=== PATIENT | male | born 1940 | race Caucasian/White ===

== ENCOUNTER 2021-05-29 11:23 | Inpatient (IN) | payer OTHER ==
[~2021-05-29] VITALS: Ht 177.8 cm; Wt 83.9 kg
[~2021-05-29 11:23] MED LIST: ALBUTEROL2.5 MG/0.1 INH; ALBUTEROL2.5 MG/31 INH; AVELOX 400 MG400 MG PO; AVELOX ABC PAC400 MG PO; AZITHROMYCIN 2250 MG PO; BIAXIN 500 MG500 M1 PO; CARAFATE 1 GM TA1 G1 PO; CHANTIX1 MG PO; CONCERTA18 M1 PO; DUONEB 2.5-0.5 M3 ML INH; LASIX 20 MG TAB20 MG PO; LEVAQUIN 500 M500 M1 PO; LEVAQUIN 500 M500 MG PO; LIPITOR20 MG; LIPITOR20 MG PO; LIPITOR40 MG PO; LISINOPRIL20 MG PO; NICOTINE TRANSD21 M1 TOP; PHENERGAN 25 MG25 M1 PO; PREDNISONE 10 M10 M1; PREDNISONE 10 M10 MG PO; PREDNISONE50 MG PO; PRILOSEC 20 MG20 MG PO; PRILOSEC40 MG PO; PROAIR HFA8.5 GM IH; PROAIR HFA8.5 GM INH; PROTONIX40 M2 PO; SINGULAIR 10 MG10 M1 PO; SPACERADULT IH; SPIRIVA INH; TAMSULOSIN HCL0.4 MG PO; VENTOLIN17 GM INH; ZPAK PO; bp med
[2021-05-29 11:27] VITALS: BP 153/90
[2021-05-29] MEDS ORDERED: OMEPRAZOLE20 M2 PO (11:32)
[2021-05-29 11:46] LABS: HEMATOCRIT 37.4 % (42.0-52.0); HEMOGLOBIN 12.4 gm/dL (14.0-18.0); MCH 28.9 pg (26.0-34.0); MCHC 33.3 g/dL (28.0-37.0); MCV 86.9 fL (80.0-100.0); MPV 8.7 fl. (7.2-11.1); NUCLEATED RBCS 0 /100WBC; PLATELET COUNT* 266 thou/uL (150-400); RDW-CV 16.6 % (10.5-14.5)
[2021-05-29 11:56] LABS: CALCIUM 8.5 mg/dL (8.5-10.1); CREATININE 1.7 mg/dL (0.6-1.3); POTASSIUM 3.2 mmol/L (3.5-5.1)
[2021-05-29 12:06] LABS: ALBUMIN 2.2 g/dL (3.4-5.0); MAGNESIUM 1.5 mg/dL (1.8-2.4); TOTAL BILIRUBIN 0.7 mg/dL (<0.1-1.0); TOTAL PROTEIN 6.4 g/dL (6.4-8.2)
[2021-05-29 12:34] LABS: ABSOLUTE EOSINOPHILS 0.2 thou/uL (0.0-0.7); ABSOLUTE LYMPHOCYTES 1.6 thou/uL (0.8-5.3); ABSOLUTE MONOCYTES 0.3 thou/uL (0.0-1.2); ABSOLUTE NEUTROPHILS 13.9 thou/uL (1.6-8.1); ATYPICAL LYMPHS 1 %; PLATELET ESTIMATE ADEQUATE
[2021-05-29 14:35] VITALS: BP 121/63
[2021-05-29 14:45] VITALS: BP 123/84
[2021-05-29 17:43] LABS: CALCIUM 8.8 mg/dL (8.5-10.1); CREATININE 1.8 mg/dL (0.6-1.3); POTASSIUM 3.4 mmol/L (3.5-5.1)
[2021-05-29 17:46] LABS: MAGNESIUM 1.7 mg/dL (1.8-2.4); PHOSPHORUS* 3.1 mg/dL (2.5-4.9)
--- NOTE | 2021-05-29 18:11 | NUR ---
RECEIVED REPORT FROM MARISA VACA. PT ARRIVED ON UNIT AROUND 1445. ASSUMED CARE. VS CHARTED. ADMIT IN CHART. MEDS GIVEN PER MAR. HOURLY ROUNDING PERFORMED. PCR COVID PENDING. ISOLATION INTACT. PT ORIENTED TO ROOM. UA SPECIMEN COLLECTED. SPUTUM STILL NEEDED. 2 AND HALF L NC. CALL LIGHT WITH IN REACH. WILL CONTINUE TO MONITOR.
[2021-05-29 23:59] VITALS: BP 132/81
[2021-05-30 04:08] VITALS: BP 141/76
[2021-05-30 04:57] LABS: ABSOLUTE LYMPHOCYTES 0.5 thou/uL (0.8-5.3); ABSOLUTE MONOCYTES 0.3 thou/uL (0.0-1.2); ABSOLUTE NEUTROPHILS 14.6 thou/uL (1.6-8.1); BASOPHILS 0.2 %; EOSINOPHILS 0.1 %; HEMOGLOBIN 12.1 gm/dL (14.0-18.0); LYMPHOCYTES 3.1 %; MCH 29.3 pg (26.0-34.0); MCHC 33.5 g/dL (28.0-37.0); MCV 87.5 fL (80.0-100.0); MONOCYTES 1.9 %; MPV 8.7 fl. (7.2-11.1); NUCLEATED RBCS 0 /100WBC; PLATELET COUNT* 272 thou/uL (150-400); POLYS 94.7 %; RBC 4.11 mil/uL (4.50-6.00); RDW-CV 16.4 % (10.5-14.5); WBC 15.4 thou/uL (4.0-11.0)
[2021-05-30 05:14] LABS: ANION GAP 9 mmol/L (7-16); BUN 42 mg/dL (7-18); CHLORIDE 107 mmol/L (98-107); CO2 27 mmol/L (21-32); CREATININE 1.6 mg/dL (0.6-1.3); GLUCOSE 163 mg/dL (70-99); POTASSIUM 3.4 mmol/L (3.5-5.1); SODIUM 143 mmol/L (136-145); TROPONIN-I LEVEL <0.06 ng/mL (<0.06)
[2021-05-30 08:00] VITALS: BP 132/87
--- NOTE | 2021-05-30 11:20 | NUR ---
Nutrition: Pt admitted with respiratory failure. In COVID isolation. H/o COPD. Wt: 185#. Assessed for Jason score 11. Labs: BG 163, alb 2.2, prealb 9. No meal intake records. RD ordered Beneprotein d/t severely depleted protein stores. Consider mild risk at this time. Please record meal intake. Encourage good protein intake. RD will follow up on po intake, labs 06/03/21.
--- NOTE | 2021-05-30 11:39 | EKG ---
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 : 1940 Requested By: Jan Marrero Order Number: [id number] MD: Winston Warner Measurements Intervals [place] Rate: 109 P: -64 MN: 136 QRS: -2 QRSD: 97 T: 46 QT: 339 QTc: 457 Interpretive Statements Atrial fibrillation ventricular premature complex Low voltage, extremity leads Compared to ECG 11/16/2013 11:05:53 Ventricular premature complex(es) now present Low QRS voltage now present Sinus rhythm no longer present Sinus arrhythmia no longer present Electronically Signed On 05-30-2021 11:39:02 CDT by Winston Warner [email or web address] <ELECTRONICALLY SIGNED> By: Winston Warner MD, [facility] 05/30/21 1139 1125 1125 Winston Warner MD, [facility] /EPI
[2021-05-30 13:33] LABS: BE 2.9 mmol/L (-2 to +3); PCO2 36.1 mmHg (35.0-45.0); PO2 60.8 mmHg (75.0-100.0); pH 7.479 (7.340-7.450)
[2021-05-30 13:45] VITALS: BP 129/79
--- NOTE | 2021-05-30 14:08 | NUR ---
CM spoke with via phone. Pt is PUI on enhanced precautions, await PCR. Pt is A&O. Independent. Normally wears 2.5L o2 at home, now requiring 4-5L. Goal is home at dc, no dc plans at this time.
--- NOTE | 2021-05-30 14:21 | 2DMMODE ---
[place] [address] 2 D/M-MODE ECHOCARDIOGRAM Name: JAKUB LARA EDJOSE GRANT Room: [address] IN [facility]#: [id number] Admission: 05/29/21 Attend Phys: Alfonzo Martin, Discharge: Date of : 40 Date of Service: 05/30/21 1421 Report #: [id number] THIS REPORT FOR: cc: Carlos Jeff Brad DO Liston, Michael J. MD [facility] ~ APPROVED REPORT Study performed: 05/30/2021 11:39:22 EXAM: Comprehensive 2D, Doppler, and color-flow Echocardiogram Patient Location: In-Patient Room #: [facility] [place] Status: routine BSA: 2.02 HR: 80 bpm BP: 132/87 mmHg Rhythm: NSR Other Information Study Quality: Good Indications Congestive Heart Failure 2D Dimensions IVSd: 11.10 (7-11mm) LVOT Diam: 23.20 (18-24mm) LVDd: 53.44 mm PWd: 10.61 (7-11mm) LVDs: 37.98 (25-40mm) Aortic Root: 34.69 mm Volumes Left Atrial Volume (Systole) LA ESV Index: 24.90 mL/m2 Aortic Valve AoV Peak James.: 1.41 m/s AO Peak Gr.: 7.97 mmHg LVOT Max P.97 mmHg AO Mean Gr.: 4.57 mmHg LVOT Mean P.75 mmHg LVOT Max V: 1.00 m/s AO V2 VTI: 24.30 cm LVOT Mean V: 0.60 m/s DENISE (VTI): 2.86 cm2 LVOT V1 VTI: 16.42 [place] [address] 2 D/M-MODE ECHOCARDIOGRAM Name: JAKUB LARA JR Room: [address] IN .R.#: [id number] Admission: 05/29/21 Attend Phys: Alfonzo Martin, Discharge: Date of : 40 Date of Service: 05/30/21 1421 Report #: [id number] Pulmonary Valve PV Peak James.: 1.00 m/s PV Peak Gr.: 4.02 mmHg Tricuspid Valve RAP Estimate: 10.00 mmHg TR Peak Gr.: 29.98 mmHg RVSP: 39.00 mmHg PA Pressure: 39.00 mmHg Left Ventricle The left ventricle is normal size. There is normal LV segmental wall motion. There is normal left ventricular wall thickness. Left ventricular systolic function is normal. LVEF is 60%. This study is not technically sufficient to allow evaluation of the LV diastolic function due to atrial fibrillation. Right Ventricle The right ventricle is normal size. The right ventricular systolic function is normal. Atria Left atrium is mildly dilated. Right atrium is mildly dilated. Aortic Valve Mild aortic valve sclerosis. No aortic regurgitation is present. There is no aortic valvular stenosis. Mitral Valve The mitral valve is normal in structure. Trace mitral regurgitation. No evidence of mitral valve stenosis. Tricuspid Valve The tricuspid valve is normal in structure. Trace tricuspid regurgitation. Mild pulmonary hypertension. Pulmonic Valve The pulmonary valve is normal in structure. There is no pulmonic valvular regurgitation. Great Vessels The aortic root is normal in size. IVC is dilated. Pericardium There is no pericardial effusion. <Conclusion> [place] [address] 2 D/M-MODE ECHOCARDIOGRAM Name: JAKUB LARANathen GRANT Room: [address] IN .R.#: [id number] Admission: 05/29/21 Attend Phys: Alfonzo Martin, Discharge: Date of : 40 Date of Service: 05/30/21 1421 Report #: [id number] The left ventricle is normal size. There is normal left ventricular wall thickness. Left ventricular systolic function is normal. LVEF is 60%. This study is not technically sufficient to allow evaluation of the LV diastolic function due to atrial fibrillation. Left atrium is mildly dilated. Right atrium is mildly dilated. Mild aortic valve sclerosis. Trace mitral regurgitation. Trace tricuspid regurgitation. Mild pulmonary hypertension. IVC is dilated. <ELECTRONICALLY SIGNED> By: Winston Warner MD, FACC 05/30/21 142 142 20 Winston Warner MD, FACC /INF
[2021-05-30 17:23] VITALS: BP 122/82
--- NOTE | 2021-05-30 18:36 | NUR ---
RECEIVED REPORT AROUND 0715. ASSUMED CARE. VS AND ASSESSMENT CHARTED. IV INTACT RIGHT FOREARM. ISOLATION INTACT. COVID PENDING. HEART MONITOR ATTACHED AT AFIB. CARDIOLOGY AND PULMONOLOGY CONSULTED TODAY. 3L NC. MEDS GIVEN PER JAN. HOURLY ROUNDING PERFORMED. CALL LIGHT WITH IN REACH. WILL CONTINUE TO MONITOR.
[2021-05-30 20:00] VITALS: BP 117/67
[2021-05-31] VITALS (7 sets, daily range): BP systolic 106–122; BP diastolic 63–81
--- NOTE | 2021-05-31 01:31 | NUR ---
PT ALERT ORIENTED. UP AD BRE IN ROOM. 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
[2021-05-31 05:47] LABS: ABSOLUTE LYMPHOCYTES 0.8 thou/uL (0.8-5.3); ABSOLUTE MONOCYTES 0.4 thou/uL (0.0-1.2); HEMATOCRIT 33.5 % (42.0-52.0); HEMOGLOBIN 11.3 gm/dL (14.0-18.0); LYMPHOCYTES 3.6 %; MCH 29.4 pg (26.0-34.0); MCHC 33.9 g/dL (28.0-37.0); MCV 86.7 fL (80.0-100.0); MONOCYTES 1.6 %; NUCLEATED RBCS 0 /100WBC; PLATELET COUNT* 300 thou/uL (150-400); POLYS 94.8 %; RBC 3.86 mil/uL (4.50-6.00); RDW-CV 16.6 % (10.5-14.5); WBC 23.3 thou/uL (4.0-11.0)
[2021-05-31 06:08] LABS: ALBUMIN 2.1 g/dL (3.4-5.0); CREATININE 1.7 mg/dL (0.6-1.3); MAGNESIUM 2.1 mg/dL (1.8-2.4); POTASSIUM 3.8 mmol/L (3.5-5.1); TOTAL BILIRUBIN 0.4 mg/dL (<0.1-1.0); TOTAL PROTEIN 5.8 g/dL (6.4-8.2)
[2021-05-31 06:12] LABS: APTT 30.5 Seconds (25.0-31.3); INR 1.2; PROTIME 12.4 Seconds (9.20-11.50)
--- NOTE | 2021-05-31 07:20 | NUR ---
CHANGE OF SHIFT BEDSIDE REPORT GIVEN PATIENT SEEN AT BEDSIDE, IN BED RESTING ASSUMED PATIENT CARE
--- NOTE | 2021-05-31 12:33 | CON ---
[address] [address] CONSULTATION Name: JAKUB LARA JR Room: [address] IN M.R.#: [id number] Admission: 05/29/21 Attend Phys: Alfonzo Martin MD Discharge: Date of : 40 Report #: [id number] THIS REPORT FOR: cc: Carlos Jeff Brad DO Liston, Michael J. MD [facility] ~ DOC #: [id number] cc: Carlos Jeff DO, Robert Carter, MD, MD Winston Doyle MD DATE OF CONSULTATION: 05/30/2021 CARDIOLOGY CONSULTATION INDICATION: New onset atrial fibrillation. HISTORY OF PRESENT ILLNESS: The patient is an 80-year-old white male who was admitted to the hospital with COPD exacerbation and acute respiratory failure and probable pneumonia. The patient was hypoxic prior to arrival. Rapid test COVID was negative. PCR COVID is pending. He denies fever. He has had increased cough with clear sputum production. He has had increasing shortness of breath. He has had a chest discomfort that starts under the right axilla and radiates around the front of his chest under his left pectoralis muscle and then terminates in the left scapula with persistent pressure in the left scapular area. A 12-lead EKG shows initially sinus rhythm with multiple and consecutive premature atrial contractions. No acute ST or T-wave abnormalities were noted. Followup EKG shows atrial fibrillation with controlled ventricular response rate. Again, no acute ST or T-wave abnormalities are noted. Telemetry shows persistent atrial fibrillation at this time. The patient reports extensive cardiac workup 7 years ago prior to AAA repair that was apparently unremarkable. 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 There is no history of coronary artery disease or myocardial infarction. PAST MEDICAL HISTORY: 1. Chronic tobacco abuse. 2. COPD. 3. Chronic bronchitis. 4. Hyperlipidemia. 5. AAA repair. 6. 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 7. [place] [address] CONSULTATION Name: JAKUB LARA JR Room: [address]#: [id number] Admission: 05/29/21 Attend Phys: Alfonzo Martin MD Discharge: Date of : 40 Report #: [id number] 8. Hypertension. 9. Previous appendectomy. 10. Previous eye surgery. FAMILY HISTORY: Noncontributory. SOCIAL HISTORY: The patient smokes a pack of cigarettes daily. He does not drink alcohol. REVIEW OF SYSTEMS: As per HPI. PHYSICAL EXAMINATION: VITAL SIGNS: Blood pressure 129/79, pulse in the 90s and irregular. GENERAL: This is a thin gentleman who does not appear to be in acute distress. HEENT: Head is normocephalic, atraumatic. Mucous membranes moist. NECK: Examination of the neck shows no obvious jugular venous distention. There are no carotid bruits. CHEST: Reveals diffusely diminished breath sounds throughout with slight expiratory wheezes. CARDIAC: Reveals an irregularly irregular rhythm without gallop or murmur. ABDOMEN: Reveals normal bowel sounds. EXTREMITIES: Shows 1-2+ ankle edema bilaterally. SKIN: Dry. DIAGNOSTIC DATA: A 12-lead EKG shows atrial fibrillation with a controlled ventricular response rate. LABORATORY DATA: Reviewed. Creatinine is 1.6, albumin 2.2. Troponins less than 0.06 on 2 separate occasions. NT-proBNP 1347. White blood cell count 15.4, hemoglobin 12.1, platelet count ____. IMPRESSION AND RECOMMENDATIONS: 1. New onset atrial fibrillation, rate adequately controlled. I am starting diltiazem to continue rate control. Starting Eliquis for anticoagulation. At this point, would not recommend aggressive antiarrhythmic treatment until the patient's pulmonary status improves. Echocardiogram shows normal LV systolic function. 2. Dyslipidemia. Continue atorvastatin. 3. Hypertension. Blood pressure adequately controlled on current regimen. 4. Chest pain, atypical for cardiac pain. The patient has ruled out for myocardial infarction. We will follow clinically. 5. Chronic tobacco abuse. Cessation advised. 5. Pneumonia/chronic obstructive pulmonary disease exacerbation, per [place] [address] CONSULTATION Name: JAKUB LARA JR Room: [address] IN [facility]#: [id number] Admission: 05/29/21 Attend Phys: Alfonzo Martin MD Discharge: Date of : 40 Report #: [id number] MD NILDA Serna/TERESA/MERLIN <ELECTRONICALLY SIGNED> By: Winston Warner MD, LESLIE 05/31/21 1233 1439 2041[facility] Hospit[facility] Warner MD, LESLIE /nt
--- NOTE | 2021-05-31 13:15 | NUR ---
Anticipate dc in a few days. Down to 3L o2. Covid negative, out of iso. New Afib and heart failure, cardiology following. Goal is home at dc. CM following.
[2021-06-01 04:04] VITALS: BP 110/60
[2021-06-01 05:20] LABS: ABSOLUTE LYMPHOCYTES 0.6 thou/uL (0.8-5.3); ABSOLUTE MONOCYTES 0.6 thou/uL (0.0-1.2); ABSOLUTE NEUTROPHILS 21.5 thou/uL (1.6-8.1); BASOPHILS 0.1 %; HEMATOCRIT 34.4 % (42.0-52.0); HEMOGLOBIN 11.6 gm/dL (14.0-18.0); LYMPHOCYTES 2.7 %; MCH 29.3 pg (26.0-34.0); MCHC 33.8 g/dL (28.0-37.0); MCV 86.7 fL (80.0-100.0); MONOCYTES 2.5 %; MPV 9.1 fl. (7.2-11.1); NUCLEATED RBCS 0 /100WBC; PLATELET COUNT* 325 thou/uL (150-400); POLYS 94.7 %; RBC 3.97 mil/uL (4.50-6.00); RDW-CV 17.2 % (10.5-14.5); WBC 22.7 thou/uL (4.0-11.0)
--- NOTE | 2021-06-01 05:33 | NUR ---
PT SLEPT MOST OF SHIFT. ASSESSMENT DOCUMENTED. MEDS GIVEN PER E-JAN. IV PATENT. PT REPORTED MILD PAIN, BUT REFUSED MEDICATION FOR IT. O2 AT 3L NC. PT ABLE TO MAKE NEEDS KNOWN. WILL CONTINUE WITH PLAN OF CARE.
[2021-06-01 05:40] LABS: PREALBUMIN 15.3 mg/dL (18.0-35.7)
[2021-06-01 05:56] LABS: ALBUMIN 2.4 g/dL (3.4-5.0); CALCIUM 9.1 mg/dL (8.5-10.1); CREATININE 1.9 mg/dL (0.6-1.3); POTASSIUM 3.7 mmol/L (3.5-5.1); TOTAL BILIRUBIN 0.3 mg/dL (<0.1-1.0); TOTAL PROTEIN 6.3 g/dL (6.4-8.2)
[2021-06-01 08:00] VITALS: BP 119/62
[2021-06-01 12:00] VITALS: BP 116/70
[2021-06-01 17:33] VITALS: BP 120/71
--- NOTE | 2021-06-01 18:28 | NUR ---
PATIENT RESTING IN BED. IV TO RIGHT ARM, SALINE LOCKED, PATENT. SAT 94% ON 3L NASAL CANNULA. BLOOD SUGARS MONITORED THROUGH SHIFT, INSULIN GIVEN ORDERED. BED IN LOW/LOCKED POSITION. ALL QUESTIONS AND CONCERNS VOICED.
[2021-06-01 20:00] VITALS: BP 128/74
[2021-06-02 00:07] VITALS: BP 147/86
--- NOTE | 2021-06-02 02:19 | NUR ---
PT ALERT ORIENTED. UP AD BRE IN ROOM. O2 AT 3 LITERS NC. OPERATIONS LEAD INITALLY SR THEN AFIB.
[2021-06-02 03:41] VITALS: BP 136/79
[2021-06-02 07:35] LABS: HEMATOCRIT 32.6 % (42.0-52.0); HEMOGLOBIN 11.1 gm/dL (14.0-18.0); MCH 29.5 pg (26.0-34.0); MCHC 34.1 g/dL (28.0-37.0); MCV 86.6 fL (80.0-100.0); MPV 9.1 fl. (7.2-11.1); NUCLEATED RBCS 0 /100WBC; PLATELET COUNT* 283 thou/uL (150-400); RBC 3.76 mil/uL (4.50-6.00); RDW-CV 16.5 % (10.5-14.5)
[2021-06-02 07:54] LABS: ALBUMIN 2.3 g/dL (3.4-5.0); CALCIUM 8.5 mg/dL (8.5-10.1); CREATININE 1.9 mg/dL (0.6-1.3); POTASSIUM 4.6 mmol/L (3.5-5.1); TOTAL BILIRUBIN 0.3 mg/dL (<0.1-1.0); TOTAL PROTEIN 5.1 g/dL (6.4-8.2)
[2021-06-02 08:00] VITALS: BP 143/86
[2021-06-02 08:24] LABS: ABSOLUTE LYMPHOCYTES 0.4 thou/uL (0.8-5.3); ABSOLUTE MONOCYTES 0.5 thou/uL (0.0-1.2); ABSOLUTE NEUTROPHILS 17.1 thou/uL (1.6-8.1)
[2021-06-02 08:29] LABS: PLATELET ESTIMATE ADEQUATE
[2021-06-02] MEDS ORDERED: FLECAINIDE ACET50 M1 PO (11:50)
[2021-06-02] MEDS ORDERED: ELIQUIS5 MG PO (11:50)
[2021-06-02] MEDS ORDERED: DOXYCYCLINE 10100 MG PO (11:50)
[2021-06-02] MEDS ORDERED: CARDIZEM CD120 MG PO (11:50)
[2021-06-02] MEDS ORDERED: PREDNISONE 10 M10 MG PO (11:52)
[2021-06-02] MEDS ORDERED: PROTONIX40 M2 PO (11:52)
[2021-06-02 12:00] VITALS: BP 135/90
[2021-06-02 13:40] VITALS: BP 143/86
--- NOTE | 2021-06-02 15:12 | NUR ---
PT DISCHARGED HOME WITH ALL BELONGINGS, ACCOMPANIED BY SON. SALINE LOCK REMOVED HUB INTACT. PT DENIED PAIN ON DISMISSAL. PT DISMISSED HOME. PT REFUSED HOME HEALTH AT THIS TIME DUE TO PT AND HIS FAMILY ARE ALL MOVING INTO ONE HOME. PT DISMISSED HOME.
[2021-06-04 02:06] LABS: MYCOPLASMA PNEUMONIA IgG 591 U/mL (0-99); MYCOPLASMA PNEUMONIA IgM <770 U/mL (0-769)
--- NOTE | 2021-06-05 21:48 | CON ---
[address] [address] CONSULTATION Name: JAKUB LARA JR Room: [address] IN .R.#: [id number] Admission: 05/29/21 Attend Phys: Alfonzo Martin MD Discharge: 06/02/21 Date of : 40 Report #: [id number] THIS REPORT FOR: cc: Carlos Jeff Brad DO Pervez, Adeel MD ~ DOC #: [id number] Drake Justice MD DATE OF CONSULTATION: 05/30/2021 REQUESTING PHYSICIAN: Alfonzo Martin MD INDICATION FOR CONSULTATION: Acute on chronic hypoxemic respiratory failure. HISTORY OF PRESENT ILLNESS: An 80-year-old gentleman, past medical history includes a history of COPD. He is on oxygen long-term. He is an active smoker. He is not on a CPAP or BiPAP long-term. The patient's previous creatinine from 2013 range from 1.1-1.3. I do not have a more recent creatinine available before this admission. I do not see documentation of atrial fibrillation prior to this admission. At this time, the patient is admitted with worsening shortness of breath. He also says he has at times had chest pain, which is band-like and associated with respiration and coughing. He reports that he has been coughing more as well and has brought up small amounts of white as well as clear sputum. He did not describe upper respiratory complaints. He does have significant swelling of lower extremities. This has not changed compared with his baseline. He has had some discomfort in his calf, which is not also changed compared with his baseline. Initially, he is reported to be hypoxemic in the 80s on baseline oxygen, which is 2 liters; however, since then has come up on his oxygen. He is maintained in the low 90s on 3 L nasal cannula as well. The patient has had some vague abdominal pain as well. At this time, he does remain actively bronchospastic. REVIEW OF SYSTEMS: A 12 points is negative except as mentioned above. PAST MEDICAL HISTORY: COPD, on oxygen long-term, hypertension, appendectomy, eye surgery, abdominal aortic aneurysm, creatinine 1.1-1.3 back in 2013. Echo performed recently shows a left ventricular ejection fraction 65%, pulmonary artery systolic 39. He is reported to be an atrial fibrillation on admission. I do not see previous documentation of atrial fibrillation. SOCIAL HISTORY: Extensive history of smoking more than a pack a day more than 60 years, still smokes. No known history of heavy alcohol use or illegal drug use. Has not taken the COVID-19 [place] [address] CONSULTATION Name: JAKUB LARA JR Room: [address] IN M.R.#: [id number] Admission: 05/29/21 Attend Phys: Alfonzo Martin MD Discharge: 06/02/21 Date of : 40 Report #: [id number] CURRENT MEDICATIONS: List in [facility] reviewed. HOME MEDICATIONS: List also in [facility] reviewed. FAMILY HISTORY: No pertinent family history. ALLERGIES: No known drug allergies. PHYSICAL EXAMINATION: GENERAL: He is alert, awake and oriented, does not appear to be in any distress at this time. VITAL SIGNS: Has a pulse of 95 and a blood pressure of 129/79. He is saturating 91% on 3 liters nasal cannula. Respiratory rate was mildly elevated to the low 20s. He is afebrile with a temperature of 35.9. Body mass index is 27. HEENT: Head is normocephalic and atraumatic. Pupils are equal and reactive. There is no throat erythema. NECK: Does not show raised JVP, asymmetry, mass or lymph nodes. CHEST: Symmetrical expansion on inspection and palpation. On auscultation, breath sounds are bilaterally equal, but decreased. Expirations are prolonged. There are inspiratory as well as expiratory wheezes noted bilaterally. HEART: Irregular. There is no murmur. ABDOMEN: Soft and nontender. EXTREMITIES: Lower extremities show 2-3+ edema bilaterally. There is no calf tenderness. SKIN: Dry and intact. NEUROLOGIC: Moves all extremities bilaterally equally and spontaneously with no focal deficit identified. LABORATORY DATA: The patient's lab work in [facility] reviewed. Elevation in creatinine to 1.8 yesterday and 1.6 today in [facility] reviewed. Low potassium and magnesium noted. COVID-19 antigen negative. PCR pending. Arterial blood gas shows pCO2 of 36. CBC in [facility] reviewed. DIAGNOSTIC DATA: Chest x-ray shows extensive bilateral infiltrates consistent more with a bacterial pneumonia with COVID-19 also possible. Findings are new compared with the previous chest x-ray performed in 2013. ASSESSMENT AND PLAN: 1. Acute on chronic hypoxemic respiratory failure. The patient appears to have a chronic obstructive pulmonary disease exacerbation as well as bacterial pneumonia. These are the likely etiologies of the patient's decompensation, would recommend continuing to titrate oxygen in case his condition deteriorates, I will have a low threshold for recommending BiPAP. [address] [address] CONSULTATION Name: JAKUB LARA JR Room: [address]#: [id number] Admission: 05/29/21 Attend Phys: Alfonzo Martin MD Discharge: 06/02/21 Date of : 40 Report #: [id number] chronic obstructive pulmonary disease exacerbation, I agree with Solu-Medrol as currently prescribed. I recommend starting nebulized bronchodilators. The patient currently is on an albuterol inhaler. He has COVID-19 PCR pending. I recommend that he be transferred to a negative pressure room so that nebulized bronchodilators could be administered. However, I understand that the availability of negative pressure rooms is limited at this time, we will add Yoliir as well. 2. Pulmonary infiltrates. At first glance, this appears to be secondary to community-acquired bacterial pneumonia and is on ceftriaxone as well as Zithromax. For now, continue the same. We will follow cultures and serologies sent yesterday. I did increase the ceftriaxone dose. We will review CT when available. Certainly COVID-19 can also give this picture, although appears to be less likely, COVID-19 PCR is pending at this time. 3. Fluid overload/acute renal insufficiency elevation in creatinine as above. This does appear to be new compared with 2013. I do not have a more recent creatinine available. He is having a CT of the abdomen and pelvis review. If there is no obstruction in the urinary tract, then I recommend giving him Lasix and Aldactone with albumin to avoid further rise in creatinine. His potassium and magnesium are low. We will certainly replace these first. 4. Atrial fibrillation. The patient is reported to be in atrial fibrillation on admission. I do not see previous documentation of atrial fibrillation on his records, currently on prophylactic dose Lovenox. I would defer to the primary service regarding whether a cardiology consult and full anticoagulation are considered. 5. Deep venous thrombosis prophylaxis. He is on Lovenox. 6. Gastrointestinal prophylaxis, he is on Protonix. 7. Clostridium difficile prophylaxis. ____ Lactinex. 8. Hyperglycemia. We will start an insulin sliding scale. Thanks for this consultation. Drake Justice MD AP/SYJeyson/AMI <ELECTRONICALLY SIGNED> By: Drake Justice MD 06/05/21 2148 1351 2042Anichol Justice MD /nt
[2021-06-10] MEDS ORDERED: MELATIN3 MG PO (21:37)
[2021-06-10] MEDS ORDERED: NORCO 10-325 T1 EACH PO (22:11)
[2021-06-10] MEDS ORDERED: ZOLOFT 50 MG TA50 MG PO (22:11)
[2021-06-10] MEDS ORDERED: SEROQUEL 25 MG25 MG PO (22:11)
== END 2021-06-02 16:00 | disposition home or self-care (01) | DRG 871 ==
LOC: M.ERS 11:23 → M.2W 12:26 → M.TBA-ER 12:26 → M.2W 14:45
PROVIDERS: Family Medicine; Internal Medicine Critical Care Medicine; ADMIT Internal Medicine; ATTEND Internal Medicine
DX: A41.9 Sepsis, unspecified organism (principal); J15.6 Pneumonia due to other Gram-negative bacteria; J96.21 Acute and chronic respiratory failure with hypoxia; N17.9 Acute kidney failure, unspecified; I13.0 Hypertensive heart and chronic kidney disease with heart failure and stage 1 through stage 4 chronic kidney disease, or unspecified chronic kidney disease; R65.10 Systemic inflammatory response syndrome (SIRS) of non-infectious origin without acute organ dysfunction; J43.9 Emphysema, unspecified; N18.9 Chronic kidney disease, unspecified; E87.6 Hypokalemia; E83.42 Hypomagnesemia; I50.9 Heart failure, unspecified; I48.91 Unspecified atrial fibrillation; E78.5 Hyperlipidemia, unspecified; F17.210 Nicotine dependence, cigarettes, uncomplicated; I27.81 Cor pulmonale (chronic); Z20.822 Contact with and (suspected) exposure to COVID-19; Z90.49 Acquired absence of other specified parts of digestive tract; Z79.899 Other long term (current) drug therapy